=== PATIENT | male | born 1980 | race Caucasian/White ===

== ENCOUNTER 2017-04-11 15:19 | Emergency (ER) | payer OTHER ==
[2017-04-11 15:42] LABS: #Basophils 0.1 thou/uL (0.0-0.2); #Eosinphils 0.1 thou/uL (0.0-0.7); #Lymphocytes 4.9 thou/uL (1.20-3.40); #Monocytes 0.8 thou/uL (0.11-0.59); #Neutrophils 7.3 thou/uL (1.40-6.50); %Basophils 0.5 % (0.0-1.0); %Eosinophils 0.5 % (0.0-10.0); %Lymphocytes 37.3 % (21.0-51.0); %Monocytes 6.4 % (0.0-10.0); Hematocrit 50.8 % (42.0-52.0); Mean Platelet Volume 7.8 fL (7.4-10.4); Red Blood Cell (RBC) Count 5.78 mill/uL (4.70-6.10); White Blood Cell (WBC) Count 13.2 thou/uL (4.8-10.8)
[2017-04-11 16:01] LABS: ALT (SGPT) 76 U/L (8-55); AST (SGOT) 30 U/L (5-34); Alkaline Phosphatase 77 U/L (40-150); Anion Gap 20 mmol/L (10-20); BUN (Urea Nitrogen) 15 mg/dL (8.9-20.6); Bilirubin, Total 0.8 mg/dL (0.2-1.2); CK (CPK) 100 U/L (30-200); Calc. Creatinine Clearance 0 mL/min (70-130); Calcium 9.9 mg/dL (7.8-10.44); Carbon Dioxide 20 mmol/L (22-29); Chloride 103 mmol/L (98-107); Estimated GFR-MDRD 73; Globulin 3.5 g/dL (2.4-3.5); Lipase 27 U/L (8-78)
--- NOTE | 2017-04-11 16:02 | CT ---
CT HEAD WITHOUT CONTRAST: Date: 04/11/17 Multiple axial tomograms obtained through the head without IV enhancement. HISTORY: Dizziness. FINDINGS: Ventricles have normal size and position. No evidence of mass or infarct. No evidence of hemorrhage. Sinuses and mastoids are well aerated. IMPRESSION: No acute abnormality. POS: [facility]
[2017-04-11 16:05] LABS: Troponin I Less than 0.010 ng/mL (< 0.028)
[2017-04-11] MEDS ORDERED: Ondansetron HCl/PF 4 MG/2 ML Vial ONE (16:15)
[2017-04-11] MEDS ORDERED: diphenhydrAMINE 50 MG/ML VIAL ONE (16:37)
[2017-04-11] MEDS ORDERED: Metoclopramide HCl 10 MG/2 ML VIAL ONE (16:37)
[2017-04-11] MEDS ORDERED: Potassium Chloride 20 MEQ TAB ONE (17:13)
[2017-04-11] MEDS ORDERED: Proparacaine 0.5% Opth 15 ML BOT ONE (17:31)
--- NOTE | 2017-04-30 10:46 | EKG ---
Test Reason : Blood Pressure : / mmHG Vent. Rate : 112 BPM Atrial Rate : 112 BPM P-R Int : 154 ms QRS Dur : 078 ms QT Int : 326 ms P-R-T Axes : 044 017 044 degrees QTc Int : 444 ms Sinus tachycardia Nonspecific T wave abnormality Abnormal ECG Confirmed by ANNA CANO M.D. ([id number]), graphics editor GERALDO ALBERTS ([id number] on 04/30/2017 10:46:32 AM Referred By: Confirmed By:ANNA CANO M.D.
== END 2017-04-11 18:07 | disposition home or self-care (01) ==
LOC: ERS 15:19
DX: R51 Headache (principal); H57.12 Ocular pain, left eye; E11.9 Type 2 diabetes mellitus without complications; Z79.82 Long term (current) use of aspirin; Z79.899 Other long term (current) drug therapy; Z79.4 Long term (current) use of insulin
CPT/HCPCS: 36416; 70450; 80053; 82553; 83690; 84484; 85025; 93005; 94760; 96361; 96365; 96375; J1200; J2405; J2765

== ENCOUNTER 2024-12-19 13:41 | Outpatient (CLI) | payer BC | END 2024-12-19 13:42 | disposition home or self-care (01) | LOC: SCSRAD 13:41 | PROVIDERS: ATTEND Internal Medicine | DX: R07.89 Other chest pain (principal) | CPT/HCPCS: 71046 ==